=== PATIENT | female | born 1940 | race Caucasian/White ===

== ENCOUNTER 2024-05-04 09:52 | Day surgery (SDC) | payer MEDICARE, SELFPAY ==
[2024-05-04] VITALS (12 sets, daily range): BP systolic 119–156; BP diastolic 60–76; PULSE 69–83; RESP 16–75; TEMP 36.3–36.6; O2SAT 93–100; BMI 31.4
--- OUTSIDE RECORDS SUMMARY | 2024-05-04 09:55 | XMS_ITS | Clinical Summary ---
Author Organization [facility] Address [place], [place] [address] Care Team Providers Care Instant Potato Processor Name Role Phone Jeana Diana MD Primary Care Provide r Allergies Active Allergy Reactions Criticality Noted Date Comments Sulfa (Sulfonamide Antibiotics) 05/09 Medications vit C,A-Zg-wvxdk-lut ein-zeaxan (PreserVision AREDS-2) capsule Take 2 Capsules by mouth once daily. 0 2 Active multivitamin (MVI) tablet Take 1 tablet 3 times per week 0 2 Active vitamin B complex (B COMPLEX 1 ORAL) 2 per week 1 Active fish oil-omega-3 fatty acids 300-1,000 mg Take 2 g by mouth. 4x a week Active cholecalciferol (VITAMIN D3) 2,000 unit capsule Take 50 mcg by mouth. 4x a week Active metoprolol succinate (TOPROL XL) 50 mg sustained-releas e tabletIndication s:HTN (hypertension) Take 1 Tablet (50 mg) by mouth once daily. 90 Tablet 3 4 Active allopurinoL (ZYLOPRIM) 300 mg tabletIndication s:Gout, unspecified cause, unspecified chronicity, unspecified site Take 1 Tablet (300 mg) by mouth once daily. 90 Tablet 3 4 Active Active Problems Problem Noted Date Diagnosed Date Tachycardia 10/27/2018 Chronic renal disease, stage III 09/12/2018 Heartburn 11/26/2017 Carpal tunnel syndrome of right wrist 09/29/2015 Cervical radiculopathy at C7 08/26/2015 Personal history of colonic polyps 01/31/2010 Overview (02/11/2015): Colonoscopy 01/2010 normal repeat in 5 years Colonoscopy 02/2015 polyp repeat in 5 years Gout, unspecified 04/13/2009 Prediabetes 01/13/2009 Unspecified essential hypertension 08/29/2007 Osteoarthrosis, unspecified whether generalized or localized, unspecified site 08/29/2007 Impaired fasting glucose 08/29/2007 Unspecified disorder of kidney and ureter 2007 Pure hypercholesterolemia 08/29/2007 Resolved Problems Problem Noted Date Diagnosed Date Resolved Date Supraventricular tachycardia 02/16/2020 02/17/2021 Encounters Date Type Department Care Team Description 04/23/2024 Telephone [facility] [address] [address] Meron Bowers, Results 04/20/2024 11:20 AM ROUTE SALES REPRESENTATIVE Office Visit [facility] [id number] [place] [address] Meron Bowers, DO Derm Problem 04/20/2024 Travel 04/15/2024 Travel 03/24/2024 11:00 AM ROUTE SALES REPRESENTATIVE Ancillary Procedure [facility] [address] [place] [address] 03/24/2024 Travel 03/21/2024 Travel 03/06/2024 11:05 AM ROUTE SALES REPRESENTATIVE Procedure Only [facility] [address] [place] [address] Charlene Bloom PA Suture Removal 03/06/2024 Travel 03/01/2024 Travel 02/25/2024 1:50 PM ROUTE SALES REPRESENTATIVE Office Visit [facility] [place] [address] Jeana Diana MD Medicare ANNUAL (subsequent) Visit (83 yo Female/Bump on middle finger right hand) 02/25/2024 Travel 02/20/2024 Travel 02/06/2024 Telephone [place] [address] [place] [address] Jeana Diana MD Referral from Last 3 Months Immunizations Name Administration Dates Next Due AMB Influenza, IIV3 (Age >=3 years)(Flu Clinic Only) 02/05/2013,01/17/2011,01/29/2008 COVID-19 vaccine (Starbak-Bio NTech 30mcg/0.3mL) PF MDV 06/07/2020,05/17/2020 Influenza A (H1N1), Inactivated 05/17/2009 Influenza A (H1N1), Inactiva valerio (Age >=3 Years) 05/17/2009 Influenza, High-dose Inactivated 024,12/20/2017,01/02/2017,2014,12/24/2013 Influenza, High-dose Quadriv alent Inactivated 01/09/2023,02/02/2022,12/29/2020 Influenza, IIV3 (Age 6-35 mos) 01/17/2011 Influenza, IIV3 (Age >=3 years) 03/13/20 12,01/13/2010,01/13/2009,2006,03/12/2005 Influenza, Inactivated IIV3 (Age 65+ Years) Preserv Free 01/05/2020 Pneumococcal Poly,23-Valent (Pneumovax) 05/02/2006 Pneumococcal conj 13-Valent (Prevnar 13) 09/16/2014 Tdap 06/07/2022,11/29/2011 Zoster (Shingrix-RZV, recombinant) 02/24/2019, Zoster (Zostavax-ZVL, live) 09/05/2007 Family History Medical History Relation Name Comments Arthritis Brother 3 Stroke Father Age 67 Cancer-colon Mother Age 70 Hypertension Mother Seizures Mother Cancer-breast No Family History Cancer-ovarian No Family History Relation Name Status Comments Brother 1 Alive Brother 2 Alive Brother 3 Daughter Antoinette Alive Father (Age 83) Maternal Grandfather Maternal Grandmother Mother (Age 70) Paternal Grandfather Paternal Grandmother Sister Alive Son [place] Alive Social History Tobacco Use Types Packs/Day Years Used Date Smoking Tobacco: Never Smokeless Tobacco: Never Tobacco Cessation:Counseling Given: Yes Alcohol Use Standard Drinks/Week Comments Yes 2 (1 standard drink = 0.6 oz pur e alcohol) 3 times a week, 1 drink PHQ-2 Answer Date Recorded PHQ-2 TOTAL SCORE 0 02/25/2024 Social Connections Answer Date Recorded Do you often feel lonely or isolated from those around you? 0 02/25/2024 Financial Resource Strain Answer Date R ecorded Difficulty of Paying Living Expenses 3 02/21/2023 Difficulty of Paying Living Expenses Not on file 02/21/2023 Food Insecurity Answer Date Recorded Do you worry your food will run out before you are able to buy more? 1 02/25/2024 Transportation Needs Answer Date Record ed Does lack of transportation keep you from medica l appointments? 1 02/25/2024 Does lack of transportation keep you from work, meetings or getting things that you need? 1 02/25/2024 Housing Stability Answer Date Recorded What is your housing situation today? 1 02/25/2024 Utilities Answer Date Recorded Do you have trouble paying f or utilities (for example, heat, electricity, water, phone)? 1 02/25/2024 Comments No Sex and Gender Information Value Date Recorded Sex Assigned at Not on file Legal Sex Female 7:04 AM ROUTE SALES REPRESENTATIVE Gender Identity Not on file Sexual Orientation Not on file Obstetrics History Para Term AB IAB SAB Ectopic Multiple Livin g Live Births 2 2 2 2 Date Outcome GA Total Labor Labor/2nd/3rd Weight Sex Type Anes PTL Scarlet A1 A5 Name Clin Term Term Last Filed Vital Signs Vital Sign Reading Time Taken Comments Blood Pressure 124/77 03/06/2024 11:04 AM ROUTE SALES REPRESENTATIVE Pulse 75 03/06/2024 11:04 AM ROUTE SALES REPRESENTATIVE Temperature 36.7 C (98 F) 09/09/2020 2:56 PM CDT Respiratory Rate 18 10/12/2015 2:31 PM CDT Oxygen Saturation 97% 03/06/2024 11:04 AM ROUTE SALES REPRESENTATIVE Inhaled Oxygen Concentration - - Weight 83 kg (183 lb) 02/25/2024 1:56 PM ROUTE SALES REPRESENTATIVE Height 162.6 cm (5' 4) 02/25/2024 1:56 PM ROUTE SALES REPRESENTATIVE Body Mass Index 31.41 02/25/2024 1:56 PM ROUTE SALES REPRESENTATIVE Plan of Treatment Health Maintenance Due Date Last Done Comments RSV vaccine for adults or (1 - 1-dose 75+ series) 2016 BMI (ht and wt on same day) for age 18+ 02/24/2025 02/25/2024, 02/21/2023, 02/20/2022, Additional history exists Medicare Wellness for age 65+ 02/25/2025, 02/21/2023, 02/20/2022, Additional history exists Depression screening for age 12+ 03/24/2025 03/24/2024, 02/25/2024, 02/21/2023, Additional history exists Tetanus booster 06/07/2032 06/07/2022, 11/29/2011 Pneumococcal series for age 50+ Completed 5, 05/02/2006 DEXA/DXA scan for age 65+ Completed 09/29/2015, 03/2010 Zoster (shingles) series for age 50+ Completed 02/24/2019, 10/21/2018, 09/05/2007 Tdap Completed 06/07/2022, 11/29/2011 COVID-19 vaccine series Completed 12/12/19 24, 03/21/2023, 08/08/2022, Additional history exists Influenza for age 65+ Completed 01/16/2024 , 01/09/2023, 02/02/2022, Additional history exists Procedures Procedure Name Priority Date/Time Associated Diagnosis Comments PATH TISSUE EXAM Routine 04/20/2024 11:3 0 AM ROUTE SALES REPRESENTATIVE Neoplasm of uncertain behavior XR MAMMO KIA BILAT SCREEN Routine 03/24/2024 11:12 AM ROUTE SALES REPRESENTATIVE Routine adult health maintenance URIC ACID Routine 02/25/2024 3:22 PM ROUTE SALES REPRESENTATIVE Gout, unspecified cause, unspecified chronicity, unspecified site BASIC METABOLIC PANEL Routine 02/25/2024 3:22 PM ROUTE SALES REPRESENTATIVE HTN (hypertension) LIPID PANEL W REFLEX MEASURED LDL Routine 02/25/2024 3:22 PM ROUTE SALES REPRESENTATIVE Lipid screening PATH TISSUE EXAM Routine 02/25/2024 3:00 PM ROUTE SALES REPRESENTATIVE Neoplasm of uncertain behavior of skin XR DXA BONE DENSITY 2 SITES AXIAL Routine 09/29/2015 10:28 AM CDT Postmenopausal from Last 3 Months or Most Recently Relevant to Health Maintenance Results * PATH TISSUE EXAM (04/20/2024 11:30 AM ROUTE SALES REPRESENTATIVE) Only the most recent of2 resultswithin the time period is included. Case Report Pathology Report Case: [id number] Authorizing Provider: Meron Bowers DO Collected: 04/20/2024 1130 Ordering Location: [facility] Received: 04/20/2024 2255 Specialty Clinic Pathologist: Meryl Marte MD Specimen: Skin, left collarbone 04/23/2024 11:41 AM [facility] ENTRAL LABORATORY Final Diagnosis SKIN, LEFT COLLARBONE, BIOPSY: 1. Inflamed seborrheic keratosis 2. Negative for malignancy 04/23/2024 11:41 AM [facility] Clinical Information SK vs NMSC 04/23/2024 11:41 AM [facility] Gross Description A) Received in formalin, labeled with the patient's name and L collarbone, is a 1.2 x 0.8 cm skin biopsy. There is a 1.2 x 0.8 cm flat ramesh lesion. The specimen is inked red, quadrisected and entirely submitted in one cassette. SJM 04/21/2024 04/23/2024 11:41 AM [facility] Microscopic Description The final diagnosis is based on microscopic examination of appropriate sections of all specimens. There is a proliferation of basaloid epidermal cells with hyperkeratosis, no significant atypia, and no invasion. There is associated chronic inflammation. The presence of red ink is confirmed on tissue sections. 04/23/2024 11:41 AM [facility] ENTRAL LABORATORY Additional Information Interpreted at [facility], Central Laboratory - [address] [address] 04/23/2024 11:41 AM [facility] Other SPECIMEN FROM SKIN / Unknown Non-Blood / Unknown 04/20/2024 11:30 AM ROUTE SALES REPRESENTATIVE 04/20/2024 3:58 PM ROUTE SALES REPRESENTATIVE Meron Bowers DO PATHOLOGY/CYTOLOGY Kylie ojeda Result [facility]AL LAB[facility]ATORY [address] [place] [address], [place] * XR MAMMO KIA BILAT SCREEN (03/24/2024 11:12 AM ROUTE SALES REPRESENTATIVE) Anatomical Region Laterality Modality BREASTS, Breast Left, Breast Right Bilateral Mammography Impressions 03/24/2024 1:53 PM ROUTE SALES REPRESENTATIVE There is no radiographic evidence for malignancy. Recommend annual mammograms. MAMMOGRAM ASSESSMENT: ACR 1 Negative PATIENTS: You will also receive a letter with your examination results in an easy to read format. If you have questions about your results, please contact your referring provider. Narrative 03/24/2024 1:53 PM ROUTE SALES REPRESENTATIVE For Patients: As a result of the Cures Act, medical imaging exams and procedure reports are released immediately into your electronic medical record. You may view this report before your referring provider. If you have questions, please contact your health care provider. XR MAMMO KIA BILAT SCREEN [[id number]] CLINICAL HISTORY: This is an asymptomatic 83 y.o. patient. INDICATION FOR EXAM: Mammogram Screening. TECHNIQUE: CC & MLO views were obtained. This study was evaluated with the assistance of Computer-Aided Detection. Breast Tomosynthesis was used in interpretation. COMPARISON FILM: Yes 03/19/23 [employer] 03/15/[address] [facility] FINDINGS: The breasts are almost entirely fatty. There are no dominant masses, suspicious micro calcifications or areas of architectural distortion. us Jeana Diana MD MAMMO Final Result * (ABNORMAL) LIPID PANEL W REFLEX MEASURED LDL (02/25/2024 3:22 PM ROUTE SALES REPRESENTATIVE) CHOLESTEROL, TOTAL 214(H) <200 mg/dL [facility] HDL CHOLESTEROL 56 > OR = 50 mg/dL [facility] TRIGLYCERIDES 228(H) <150 mg/dL [facility] Comment: If a non-fasting specimen was collected, consider repeat triglyceride testing on a fasting specimen if clinically indicated. Bertha et al. J. of Clin. Lipidol. 2015;9:129-169. LDL-CHOLESTEROL 123(H) mg/dL (calc) [facility] Comment: Reference range: <100 Desirable range <100 mg/dL for primary prevention; <70 mg/dL for patients with CHD or diabetic patients with > or = 2 CHD risk factors. LDL-C is now calculated using the Estuardo-Dunbar calculation, which is a validated novel method providing better accuracy than the Friedewald equation in the estimation of LDL-C. Estuardo SS et al. FRANCISCO. 2013;310(19): 4899-7770 (http://education.Giveit100/faq/WMI294) CHOL/HDLC RATIO 3.8 <5.0 (calc) [facility] NON HDL CHOLESTEROL 158(H) <130 mg/dL (calc) [facility] Comment: For patients with diabetes plus 1 major ASCVD risk factor, treating to a non-HDL-C goal of <100 mg/dL (LDL-C of <70 mg/dL) is considered a therapeutic option. Blood BLOOD SPECIMEN / Unknown 02/25/2024 3:22 PM ROUTE SALES REPRESENTATIVE 02/25/2024 3:22 PM ROUTE SALES REPRESENTATIVE Jeana Diana MD CHEMISTRY Final Result [facility] [address] [place] [address], [facility] [address] [place] [address] * URIC ACID (02/25/2024 3:22 PM ROUTE SALES REPRESENTATIVE) URIC ACID 4.5 2.5 - 7.0 mg/dL [facility]or[facility] Castillo Comment: Therapeutic target for gout patients: <6.0 mg/dL Blood BLOOD SPECIMEN / Unknown 02/25/2024 3:22 PM ROUTE SALES REPRESENTATIVE 02/25/2024 3:22 PM ROUTE SALES REPRESENTATIVE Jeana Diana MD CHEMISTRY Final Result Performing Organization Address City/[facility]/ZIP Co de Phone Number [facility] [address] [address] [facility] [address], [place] [phone] [facility] [address] [facility] [place] [address] * (ABNORMAL) BASIC METABOLIC PANEL (02/25/2024 3:22 PM ROUTE SALES REPRESENTATIVE) [facility] GLUCOSE 97 65 - 99 mg/dL [facility] Comment: Fasting reference interval UREA NITROGEN (BUN) 24 7 - 25 mg/dL [facility] CREATININE 1.31(H) 0.60 - 0.95 mg/dL [facility] EGFR 41(L) > OR = 60 mL/min/1.7 3m2 [facility] BUN/CREATININE RATIO 18 6 - 22 (calc) [facility] SODIUM 141 135 - 146 mmol/L [facility] POTASSIUM 4.6 3.5 - 5.3 mmol/L [facility] CHLORIDE 105 98 - 110 mmol/L [facility] CARBON DIOXIDE 27 20 - 32 mmol/L [facility] ELECTROLYTE BALANCE 9 7 - 17 mmol/L (calc) [facility] CALCIUM 9.8 8.6 - 10.4 mg/dL [facility] Blood BLOOD SPECIMEN / Unknown 02/25/2024 3:22 PM ROUTE SALES REPRESENTATIVE 02/25/2024 3:22 PM ROUTE SALES REPRESENTATIVE Jeana Diana MD CHEMISTRY Final Result Performing Organization Address City/[facility]/ZIP Co de Phone Number [facility] [address] [place] [address], [place] [phone] [facility] [address] [facility] [place] [address] * XR DXA BONE DENSITY 2 SITES AXIAL (09/29/2015 10:28 AM CDT) Anatomical Region Laterality Modality Spine, HIPS, HIPL, HIPR Other Narrative 10/05/2015 4:47 PM CDT Please see scanned document for results of this study. Jeana Diana MD DEXA Final Result from Last 3 Months or Most Recently Relevant to Health Maintenance Insurance [address] [place] [address] [place] [id number] [employer] MED[employer]ARE ADVANTAGE [place] [address] [place] [address] [id number] Care Teams Instant Potato Processor Relationship Specialty Start Date End Date Jeana Diana MD [address] [place] [address] PCP - General 05/18/05
--- OUTSIDE RECORDS SUMMARY | 2024-05-04 09:55 | XMS_ITS | Referral Summary ---
Author Organization [facility] Address [address] [place] [address] Care Team Providers Care Spiral Machine Operator Name Role Phone Elsewhere, Pcp Primary Care Provider Unavailabl e Source Comments Patient records contain information from all sites at [facility]. For routine questions regarding patient records, call [phone] during business hours, M-F 8:00 AM - 5:00 PM Central Time. Record requests for emergency care only can be directed to [phone] at any time.[facility] Allergies Active Allergy Reactions Criticality Noted Date Comments Sulfa (Sulfonamide Antibiotics) Itching 04/1969 Medications * This document contains information received from the source organization and may not represent a complete record from that organization. allopurinoL (ZYLOPRIM) 300 mg tablet Take 300 mg by mouth daily. 0 Active metoprolol succinate (TOPROL-XL) 50 mg 24 hr tablet Take 50 mg by mouth daily. 0 Active diclofenac sodium (VOLTAREN) 1 % gel Apply 4 g topically 4 (four) times a day as needed (to areas of arthritic pain). Apply to painful area of hands. 100 g 11 1 Active vit C/E/Zn/coppr/evelin tein/zeaxan (PRESERVISION AREDS-2 ORAL) Take 2 capsules by mouth 2 (two) times a day. 2 Active multivitamin capsule Take 1 capsule by mouth daily. Active cholecalciferol (VITAMIN D3) 50 mcg (2,000 Unit) capsule Take 50 mcg by mouth 3 (three) times a week. Active omega-3 fatty acids-fish oil 300-1,000 mg per capsule Take 2 g by mouth 3 (three) times a week. 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 No 11/21/2023 Humiliation, Afraid, Rape, and Kick questionnair e Answer Date Recorded Within the last year, have y ou been afraid of your partner or ex-partner? No 03/09/2022 Within the last year, have y ou been humiliated or emotionally abused in other ways by your partner or ex-partner? No Within the last year, have y ou been kicked, hit, slapped, or otherwise physically hurt by your partner or ex-partner? No 03/09/2022 Within the last year, have y ou been raped or forced to have any kind of sexual activity by your partner or ex-partner? No 03/09/2022 Social Connection and Isolat ion Panel [NHANES] Answer Date Recorded In a typical week, how many times do you talk on the phone with family, friends, or neighbors? More than three times a week 03/09/2022 How often do you get togethe r with friends or relatives? Once a week 03/09/2022 How often do you attend chur or alevism services? 1 to 4 times per year 03/09/2022 Do you belong to any clubs o r organizations such as christianity groups, unions, fraternal or athletic groups, or school groups? Yes 03/09/2022 How often do you attend meet ings of the clubs or organizations you belong to? More than 4 times per year 03/09/2022 Are you , , di vorced, , never , or living with a partner? 03/09/2022 AUDIT-C Answer Date Recorded Q1: How often do you have a drink containing alc ohol? Monthly or less 03/09/2022 Q2: How many drinks containi ng alcohol do you have on a typical day when you are drinking? 1 or 2 03/09/2022 Q3: How often do you have si x or more drinks on one occasion? Never 03/09/2022 Overall Financial Resource Strain (CARDIA) Answe r Date Recorded How hard is it for you to pa y for the very basics like food, housing, medical care, and heating? Not hard at all 03/09/2022 [facility] - Occupational Stress Questionnaire Answer Date Recorded Do you feel stress - tense, restless, nervous, or anxious, or unable to sleep at night because your mind is troubled all the time - these days? Only a little 03/09/2022 Exercise Vital Sign Answer Date Recorde d On average, how many days pe r week do you engage in moderate to strenuous exercise (like a brisk walk)? 2 days 11/21/2023 On average, how many minutes do you engage in exercise at this level? 20 min 11/21/2023 Hunger Vital Sign Answer Date Recorded Within the past 12 months, y ou worried that your food would run out before you got the money to buy more. Never true 11/21/19 24 Within the past 12 months, t he food you bought just didn't last and you didn't have money to get more. Never true 11/21/2023 PRAPARE - Transportation Answer Date Re corded In the past 12 months, has l ack of transportation kept you from medical appointments or from getting medications? No 11/06 In the past 12 months, has l ack of transportation kept you from meetings, work, or from getting things needed for daily living? No 11/21/2023 Nutrition Answer Date Recorded On average, how many serving s of fruits and vegetables do you eat per day (serving size is equal to 1 cup or approximately the size of a tennis ball)? 3-5 11/21/2023 Dental Answer Date Recorded Dental: Regular Dentist Yes 08/16/19 Employment Answer Date Recorded Employment status Retired 11/21/2023 Housing Stability Answer Date Recorded What is your living situation today? I have a [facility] [place] place to live 11/21/2023 Education Answer Date Recorded What is the highest level of school you have completed or the highest degree you have received? Associate degree: occupational, technical, or vocational program 08/15/2020 Comments Unknown Sex and Gender Information Value Date Recorded Sex Assigned at Female 04/05/2021 7:53 PM SECURITIES SUPERVISOR Legal Sex Female 3:05 PM SECURITIES SUPERVISOR Gender Identity Female 08/16/2020 9:05 AM CDT Sexual Orientation Straight 08/16/2020 9: 05 AM CDT Last Filed Vital Signs Vital Sign Reading Time Taken Comments Blood Pressure 153/80 08/30/2020 2:45 PM CDT Pulse 73 08/30/2020 3:00 PM CDT Temperature 36.7 C (98.1 F) 08/30/2020 11:16 AM CDT Respiratory Rate 18 08/30/2020 3:00 PM CDT Oxygen Saturation 94% 08/30/2020 3:00 PM CDT Inhaled Oxygen Concentration - - Weight 87.1 kg (192 lb) 08/30/2020 11:16 AM CDT Height 165.1 cm (5' 5) 08/30/2020 11:16 AM CDT Body Mass Index 31.95 08/30/2020 11:16 AM CDT Plan of Treatment Not on file Insurance [facility] Care Teams Spiral Machine Operator Relationship Specialty Start Date End Date Elsewhere, Pcp PCP - General Family Medicine 08/30/20
--- OUTSIDE RECORDS SUMMARY | 2024-05-04 09:55 | XMS_ITS | Clinical Summary ---
Author Organization [facility] Address [address] [place] [id number] Care Team Providers Care Hospital Plan Administrator Name Role Phone Elsewhere, Pcp Primary Care Provider Unavailabl e Source Comments Patient records contain information from all sites at [facility]. For routine questions regarding patient records, call [phone] during business hours, M-F 8:00 AM - 5:00 PM Central Time. Record requests for emergency care only can be directed to [phone] at any time.[facility] Allergies Active Allergy Reactions Criticality Noted Date [...] Tachycardia, Unspecified 2019 Radiculopathy Cervical Seventh 09/20/2015 Family History Medical History Relation Name Comments Cataracts Father Macular degeneration Father Glaucoma Neg Hx Relation Name Status Comments Father Social History Tobacco Use Types Packs/Day Years Used Date Smoking Tobacco: Never Smokeless Tobacco: Never Tobacco Cessation:Counseling Given: Not Answered [facility] Utilities Answer Date Recorded In the past 12 months has [facility] [employer], gas, oil, or water [employer] threatened to shut off services in your [...] week 03/09/2022 How often do you attend [facility] or restorationist services? 1 to 4 times per year 03/09/2022 Do you belong to any clubs o r organizations such as samaritan groups, unions, fraternal or athletic groups, or [...] and heating? Not hard at all 03/09/2022 [facility] - Occupational Stress [...] your living situation today? I have a [facility] place to live 11/21/2023 Education Answer Date Recorded What is the highest level of school you have completed or the highest degree you have received? Associate degree: occupational, technical, or vocational program 08/15/2020 Comments Unknown Sex and Gender Information Value Date Recorded Sex Assigned at Female 04/05/2021 7:53 PM [employer] Legal Sex Female 3:05 PM [employer] Gender Identity Female 08/16/2020 9:05 AM CDT [...] 08/30/2020 11:16 AM CDT Plan of Treatment Health Maintenance Due Date Last Done Comments RSV vaccine - (32-36 weeks) or 60+ years (1 - 1-dose 75+ series) 2016 COVID-19 Vaccine ( season) 2023 03/21/2023, 08/08/2022, 01/17/2022, Additional history exists Influenza Vaccine (#1) 2024 , 02/02/2022, 12/29/2020, Additional history exists Depression Screening (Annual PHQ-2) 04/08/2024 Fall Risk Screen (Annual) 04/08/2024 DTaP,Tdap,and Td Vaccines (3 - Td or Tdap) 06/07/2032 06/07/2022, 11/29/2011 Pneumococcal vaccine (50+ years) Completed 09/16/2014, 05/02/2006 Zoster Vaccines Completed 02/24/2019, 10/06, 09/05/2007 IPV Vaccines Aged Out No longer eligi ble based on patient's age to complete this topic Insurance [facility] Care Teams Hospital Plan Administrator Relationship Specialty Start Date End Date Elsewhere, Pcp PCP - General Family Medicine 08/30/20
--- OUTSIDE RECORDS SUMMARY | 2024-05-04 09:55 | XMS_ITS ---
Author Organization [facility] Address [address] [place] [address] Care Team Providers Care Psych Np Name Role Phone Unavailable Unavailable Unavailable Surgery Details Not on file Complications Check Surgery Details section. Procedure Estimated Blood Loss Check Surgery Details section. Procedure Findings Check Surgery Details section. Procedure Specimens Taken Check Surgery Details section.
[2024-05-04] MEDS: LIDOCAINE 1%-EPI 1:100,000 20 ML INFILTRATI (10:30)
[2024-05-04] MEDS: BUPIVACAINE 0.5% 30 ML INJECTION (10:30)
[2024-05-04] MEDS: ETHYL CHLORIDE 1 APPLICATION 1 APPLIC TOPICAL (10:30)
--- NOTE | 2024-05-04 12:27 | PM.ORPRC ---
Procedure Note Date of procedure: 05/04/24 Procedure: PREOPERATIVE DIAGNOSIS: 1. Right long finger dorsal mucous cyst with associated osteophytosis of the D IP joint POSTOPERATIVE DIAGNOSIS: 1. Right long finger dorsal mucous cyst with associated osteophytosis of the D IP joint PROCEDURE: 1. Right long finger dorsal mucous cyst open excision 2. Right long finger dorsal dip joint osteophyte open excision SURGEON: Simba Vicente MD. PASSENGER CAR INSPECTOR: Ghanshyam Max PA-C - Of note, an phlebotomy lab assistant was critical for this case to aid in patient positioning, tissue retraction, limb manipulation/positioning, and closure. ANESTHESIA: Local anesthetic (50:50 mixture of 1% lidocaine with epi and 0.5% marcaine plain) - 5 mL total IMPLANTS: None TOURNIQUET: 20 minutes digital Tourni-cot COMPLICATIONS: None evident INDICATIONS: The patient is a pleasant 84-year-old female who has experienced right long finger dorsal mucous cyst formation overlying the D IP joint with associated osteophytosis confirmed on radiographs. The cyst has recurrent the formed, ruptured, and regressed over 1.5 years and continues to be bothered for her, painful, and the risk for infection of the joint. Nonoperative management has been tried but unsuccessful. Given the failure of nonoperative management, and how this affects daily life, surgery was recommended. DESCRIPTION OF PROCEDURE: Following a thorough discussion of risks, benefits, and alternatives consent was obtained and the operative extremity was marked. The patient was brought to the operating room and placed supine on the operating table. No antibiotics were administered as this was planned to be a local case only. Proper time-out was performed identifying proper patient, site, and procedure. The operative extremity was prepped and draped in the appropriate sterile fashion using ChloraPrep. The Tourni-cot was engaged. An incision was made on the dorsal aspect of the right long finger D IP joint. This 'T' shaped incision was sharply divided to the skin and blunt dissection through subcutaneous tissue to osteo protect the crossing extensor tendon. The tendon was identified. The tendon was elevated from the IP joint to access the osteophytes at the IP joint. These were removed with combination of rongeur, curette, and rasp. Regarding the mucous cyst, the skin was relatively thin overlying the cyst which was on the radial aspect of the digit. The cyst was excised, but more in piecemeal fashion, thus no single specimen knee could be sent for pathology. The capsule was also incised and some of the tissue excised. At this stage, the Tourni-cot was removed and hemostasis achieved. Closure was performed with 4-O nylon. Soft dressings were applied, and the patient was awoken/transferred to the recovery room in stable condition. PLAN: 1. Encourage elevation of the operative extremity. 2. Range of motion of the operative extremity/digits as tolerated. 3. Ibuprofen, acetaminophen and/or oxycodone as needed for pain. 4. Follow up with PA visit in 12-16 days for wound check and suture removal.
[2024-05-04] MEDS: BACITRACIN OINTMENT BULK TUBE 1 APPLIC TOPICAL (12:35)
--- NOTE | 2024-05-04 13:04 | SUR.PHASEII ---
Patient returned from OR to recliner. Patient tolerated ice water. Patient and verbalized readiness to be discharged and understanding of discharge instructions.
== END 2024-05-04 13:05 | disposition home or self-care (01) ==
LOC: OR 09:53
PROVIDERS: PCP Family Medicine; Visit Provider Orthopaedic Surgery Sports Medicine
PROC: (CPT 26236; principal; 2024-05-04 11:45)
DX: M67.441 Ganglion, right hand (principal); M25.741 Osteophyte, right hand
CPT/HCPCS: 26236; 26160; J0665